=== PATIENT | male | born 1975 | race Caucasian/White ===

== ENCOUNTER 2022-08-29 05:38 | Emergency (ER) | payer OTHER, SELFPAY ==
[2022-08-29 05:42] VITALS: BP 123/90; PULSE 75; RESP 18; TEMP 36.4; O2SAT 100
--- NOTE | 2022-08-29 07:20 | ED.EYEPROB ---
HPI - Eye Problem General Chief complaint: Eye Problems Stated complaint: L eye swelling/redness Time Seen by Provider: 08/29/22 07:03 Source: RN notes reviewed History of Present Illness HPI Narrative: Patient presents emergency department from home for left upper eyelid swelling. Patient states that he began to note the symptoms approximately 2 days ago. He states he noted swelling and erythema of the left upper eyelid he states that with this it is causing mild blurred vision he states that the area of the eyelid is tender to palpation he denies any swelling of the lower eyelid he denies any redness of the eye and denies any drainage states he does not wear contacts or glasses Related Data Home Medications Medication Instructions Recorded Confirmed azelastine 137 mcg (0.1 %) nasal 1 spray intranasal DAILY 10/16/19 10/16/19 spray aerosol fexofenadine 60 mg tablet (Maggy 60 mg PO DAILY 10/16/19 10/16/19 Allergy) Allergies Allergy/AdvReac Type Severity Reaction Status Date / Time No Known Allergies Allergy Verified 08/29/22 07:54 Review of Systems Review of Systems: Gen.: Denies fevers or chills Eyes: See HPI Neuro: Denies headache Skin: Denies rash Endo: Denies DM PMFSH Past Medical History Medical History Desmoid tumor of abdomen (2013) Surgical History Surgical History (System 11/18/21 @ 11:26 by Ricky Mcfadden) H/O nasal septoplasty Family History Family History (System 11/18/21 @ 11:26 by Ricky Mcfadden) Father Hypertension Malignant neoplasm of prostate Family history of coronary artery disease Social History Social History Smoking status: Never smoker Alcohol intake: current Drinks per week: 4 Substance use: never Gender identity (if verbalized by the patient): Male Spiritual care concerns: No Agree to blood products: Yes Exam Narrative: APPEARANCE: No acute distress, nontoxic, resting in bed EYES: EOMI, PERRL no conjunctival erythema, of the right upper and lower eyelid are normal appearance left lower eyelid is normal in appearance of the left upper eyelid is mildly swollen and erythematous, over the medial aspect there is a small area of firmness and appearance of a stye no foreign bodies are seen HEENT: Normocephalic, atraumatic, OMM RESPIRATORY: No respiratory distress MUSCULOSKELETAl: Moves all extremities. NEURO: Awake and alert. Following commands, speech normal, no focal deficits SKIN:: Warm, dry. No rashes lesions or abrasions PSYCHIATRIC: Normal affect/mood, Course Course Emergency Course: Discussed with patient results of workup and diagnosis. Discussed need for follow-up with primary care, proper use of medication, and reasons to return to the emergency department. Patient understands and agrees to current treatment plan Vital Signs Vital signs: Vital Signs Temperature 97.5 F L 08/29/22 05:42 Pulse Rate 75 08/29/22 05:42 Respiratory Rate 18 08/29/22 05:42 Blood Pressure 123/90 08/29/22 05:42 Pulse Oximetry 100 08/29/22 05:42 Oxygen Delivery Room Air 08/29/22 05:42 Temperature 97.5 F L 08/29/22 05:42 Pulse Rate 75 08/29/22 05:42 Respiratory Rate 18 08/29/22 05:42 Blood Pressure 123/90 08/29/22 05:42 Pulse Oximetry 100 08/29/22 05:42 Oxygen Delivery Room Air 08/29/22 05:42 Discharge Plan Discharge Clinical Impression: Hordeolum externum left upper eyelid Patient Disposition: Home, Self-Care Condition: Stable Instructions: Seamus Roe (ED) Additional Instructions: Return for increasing pain vision changes or any other symptoms of concern Prescriptions: New ibuprofen 600 mg tablet 600 mg PO TID PRN (Reason: pain) Qty: 14 0RF erythromycin 5 mg/gram (0.5 %) ointment 1 applic LEFT EYE ONCE Qty: 3.5 0RF No Action fexofenadine [Maggy Allergy] 60 mg Tabl
[2022-08-29] MEDS: IBUPROFEN 600 MG TABLET PO (08:05)
[2022-08-29] MEDS: ERYTHROMYCIN OPHTH OINTMENT 1 GM TUBE 1 APPLIC LEFT EYE (08:05)
[2022-08-29 08:48] VITALS: BP 128/74; PULSE 75; RESP 18; O2SAT 99
== END 2022-08-29 08:10 | disposition home or self-care (01) ==
PROVIDERS: Emergency Provider Emergency Medicine; PCP Nurse Practitioner Family
DX: H00.014 Hordeolum externum left upper eyelid (principal)
CPT/HCPCS: 99283; A9270

== ENCOUNTER 2024-12-05 07:16 | Emergency (ER) | payer OTHER, SELFPAY ==
[2024-12-05 07:19] VITALS: BP 145/96; PULSE 109; RESP 16; TEMP 36.4; O2SAT 99
--- OUTSIDE RECORDS SUMMARY | 2024-12-05 07:19 | XMS_ITS | Referral Summary ---
Author Organization [facility] Address [address] [place] [address] Care Team Providers Care Water Jet Loom Fixer Name Role Phone Star Townsend MD Unavailable [phone] Bijan Benson MD Primary Care Provider [phone] Source Comments [facility],non-owned Affiliates and Associated Physician Practices is amultiple site organization consisting of ambulatory clinics and hospital sitesin [place], [place], [place] and [place]. This disclosure is being madepursuant to the Care Everywhere program and may not contain all information available regarding this patient. Last updated 18.[facility] Allergies No known active allergies Medications Be aware that medications may not be up to date on this document. Always verify current medications with the patient. No known medications Social History Tobacco Use Types Packs/Day Years Used Date Smoking Tobacco: Never Smokeless Tobacco: Never Alcohol Use Standard Drinks/Week Comments Yes 0 (1 standard drink = 0.6 oz pur e alcohol) Sex and Gender Information Value Date Recorded Sex Assigned at Not on file Gender Identity Not on file Sexual Orientation Not on file Last Filed Vital Signs Vital Sign Reading Time Taken Comments Blood Pressure 110/84 10/15/2018 10:34 AM CO TEACHER Pulse 83 10/15/2018 10:34 AM CO TEACHER Temperature 36.7 C (98.1 F) 10/15/2018 10:34 AM CO TEACHER Respiratory Rate 16 10/15/2018 10:34 AM CO TEACHER Oxygen Saturation 98% 10/15/2018 10:34 AM CO TEACHER Inhaled Oxygen Concentration - - Weight 88.5 kg (195 lb) 10/15/2018 10:34 AM CO TEACHER Height 185.4 cm (6' 1 ) 10/15/2018 10:34 AM CO TEACHER Body Mass Index 25.73 10/15/2018 10:34 AM CO TEACHER Plan of Treatment Not on file Care Teams Water Jet Loom Fixer Relationship Specialty Start Date End Date Bijan Benson MD [address] [place] [address] PCP - General Family Medicine 10/02/15 Star Townsend MD Cardiology 09/30/15
--- OUTSIDE RECORDS SUMMARY | 2024-12-05 07:19 | XMS_ITS | Clinical Summary ---
Author Organization [facility] Address [address] [place] [address] Care Team Providers Care Bill Adjuster Name Role Phone Star Townsend MD Unavailable [phone] Bijan Benson MD Primary Care Provider [phone] Source Comments [facility],non-owned Affiliates and Associated Physician Practices is amultiple site organization consisting of ambulatory clinics and hospital sitesin [place], [place], [place] and [place]. This disclosure is being madepursuant to the Care Everywhere program and may not contain all information available regarding this patient. Last updated 18.[facility] Allergies No known active allergies Medications Be aware that medications may not be up to date on this document. Always verify current medications with the patient. 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 MILL OPERATOR Pulse 83 10/15/2018 10:34 AM PULVERIZER MILL OPERATOR Temperature 36.7 C (98.1 F) 10/15/2018 10:34 AM PULVERIZER MILL OPERATOR Respiratory Rate 16 10/15/2018 10:34 AM PULVERIZER MILL OPERATOR Oxygen Saturation 98% 10/15/2018 10:34 AM PULVERIZER MILL OPERATOR Inhaled Oxygen Concentration - - Weight 88.5 kg (195 lb) 10/15/2018 10:34 AM PULVERIZER MILL OPERATOR Height 185.4 cm (6' 1 ) 10/15/2018 10:34 AM PULVERIZER MILL OPERATOR Body Mass Index 25.73 10/15/2018 10:34 AM PULVERIZER MILL OPERATOR Plan of Treatment Health Maintenance Due Date Last Done Comments COLOGUARD (AGES 45-75) - COL ON CA SCREENING 1977 COLON MONITORING 1977 COLONOSCOPY - COLON CA SCREENING 1977 CT COLONOGRAPHY - COLON CA SCREENING 1977 Colorectal Cancer Screening 1977 FIT - COLON CA SCREENING 1977 FLEX SIG - COLON CA SCREENING 1977 LIPID TESTING 1977 HIV SCREENING 1992 HEPATITIS C SCREENING 05/02/1995 DTAP/TDAP/TD VACCINES (1 - Tdap) 1996 HEPATITIS B VACCINE (1 of 3 - 19+ 3-dose series) 1996 SCREENING FOR DIABETES 10/21/2017 COVID-19 VACCINE (1 - 2023-2 5 season) 2024 INFLUENZA VACCINE (#1) 2024 DEPRESSION SCREENING 10/16/2024 ZOSTER VACCINE (1 of 2) 2027 HIB VACCINE Aged Out No longer eligi ble based on patient's age to complete this topic HPV VACCINE Aged Out No longer eligi ble based on patient's age to complete this topic MENINGOCOCCAL (Group B) VACCINE Aged Out No longer eligible based on patient's age to complete this topic MENINGOCOCCAL VACCINE Aged Out No vinicio mandy eligible based on patient's age to complete this topic PNEUMOCOCCAL VACCINE Aged Out No long er eligible based on patient's age to complete this topic Care Teams Bill Adjuster Relationship Specialty Start Date End Date Bijan Benson MD [address] [place] [address] PCP - General Family Medicine 10/02/15 Star Townsend MD Cardiology 09/30/15
--- OUTSIDE RECORDS SUMMARY | 2024-12-05 07:19 | XMS_ITS | Referral Summary ---
Author Organization [facility] Address [address] [facility] [place] [address] Care Team Providers Care Technical Operations Manager Name Role Phone Jose F Christy MD Unavailable [phone] Nitin Martinez MD Primary Care Provider [phone] Allergies No known active allergies Medications multivitamin tablet daily. Active cetirizine (ZyrTEC) 10 mg tablet Take 1 tablet (10 mg total) by mouth daily Active fluticasone propionate (FLONASE) 50 mcg/actuation nasal spray Administer 1 spray into each nostril as needed Active scopolamine 1 mg over 3 days patch [address] 1 patch on the skin every third day as needed (nausea) 4 patch 2 4 Active lisinopriL (PRINIVIL,ZESTR IL) 20 mg tabletIndicatio ns:Hypertension , essential TAKE 1 TABLET DAILY 90 tablet 3 4 Active Active Problems Problem Noted Date Diagnosed Date Dyslipidemia (high LDL; low HDL) 07/16/2024 Assessment & Plan (07/16/2024 1:38 PM CDT): Mildly elevated total and LDL cholesterol; encouraged continued dietary changes, continue current exercise program Polycythemia 09/26/2022 Assessment & Plan (07/16/2024 1:38 PM CDT): Stable, resolving; most recent hemoglobin hematocrit within normal Assessment & Plan (08/22/2023 3:57 PM SEAMLESS TUBE MILL OPERATOR): Will recheck CBC today to evaluate for risk of polycythemia Assessment & Plan (09/26/2022 11:43 AM SEAMLESS TUBE MILL OPERATOR): Resolving, hemoglobin hematocrit trended to normal ranges on most recent labs Will continue to check every 6-12 months to ensure normalizes in normal range Hypertension, essential 07/01/2022 Assessment & Plan (07/16/2024 1:37 PM CDT): Stable, blood pressure mildly elevated at home; today within normal limits Continue lisinopril 20 mg daily Assessment & Plan (08/22/2023 3:57 PM SEAMLESS TUBE MILL OPERATOR): Blood pressure mildly elevated, has been having some dizziness associated with high blood pressure; good sleep; continue lisinopril 20 mg daily Assessment & Plan (03/27/2023 4:56 PM CDT): Stable, well controlled; blood pressure at target; patient reports he has been monitor home and all ambulatory measurements are at target No episodes orthostatics, chest pain or headaches No further episodes of palpitations Continue lisinopril 20 mg daily Assessment & Plan (09/26/2022 11:42 AM SEAMLESS TUBE MILL OPERATOR): Stable, well controlled; patient reports sudden addition to starting medication, has also been working on dietary and activity changes Has lost approximately 10 lb since last visit Encouraged patient continue with lifestyle and activity changes, labs demonstrate normal creatinine and potassium Continue lisinopril 20 mg daily Assessment & Plan (07/01/2022 5:53 PM CDT): Patient has elevated blood pressure, measured in 2020, and again this week x2 Elevated today Patient has family history including father elevated blood pressure Start lisinopril 20 mg daily Gilbert's syndrome 06/24/2022 Assessment & Plan (07/16/2024 1:37 PM CDT): Bilirubin remains stable; no other signs of liver dysfunction inflammation; no current issues for patient Will continue to monitor Assessment & Plan (08/22/2023 3:57 PM SEAMLESS TUBE MILL OPERATOR): Has some abdominal pain; known elevated bilirubin; will recheck CMP to ensure stable bilirubin levels Assessment & Plan (09/26/2022 11:42 AM SEAMLESS TUBE MILL OPERATOR): Stable, most recent CMP demonstrated mild increase of bilirubin, with no evidence of jaundice Pleural fibrosis 11/11/2019 Disorder of penis, unspecified 10/28/2019 Palpitation 10/28/2019 PVCs (premature ventricular contractions) 2019 Pneumothorax on right 10/24/2019 Overview (10/24/2019): First pneumothorax on 10/16/2019 with 7 day hospitalization at OSH with chest tube now with recurrence Assessment & Plan (07/01/2022 5:54 PM CDT): Patient noticed dyspnea on 5 days ago; still present but improving Patient has limited aerobic exercise activities this week Imaging performed in ED demonstrated no recurrence of pneumothorax Assessment & Plan (10/30/2019 10:02 AM SEAMLESS TUBE MILL OPERATOR): - s/p blebectomy and pleural tent on 10/29 - R chest tube to -20 suction, no air leak - remove chest tube today with post- pull CXR - No Beltran, voiding spontaneously - Regular diet - Pain: heber tylenol, oxy PRN, dilaudid PRN - DVT ppx: SQH Assessment & Plan (10/24/2019 1:32 PM SEAMLESS TUBE MILL OPERATOR): POA -Plan to place Thal Quick chest tube in the ED -Will keep chest tube to -20cm suction after placed -Chest CT to be obtained after lung has re-expanded -Discussed possibility of pleurodesis with patient, he is in favor of proceeding in a surgical direction Acute pain 10/24/2019 Assessment & Plan (10/24/2019 1:34 PM SEAMLESS TUBE MILL OPERATOR): -Will start Tylenol and ibuprofen around the clock -Oxycodone PRN, Morphine IV PRN for breakthrough pain -Will order bowel regimen PRN as patient was complaining of diarrhea at home -PRN Zofran Left elbow pain 01/24/2019 Lateral epicondylitis of left elbow 01/24/2019 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 Nasal congestion 07/03/2018 Overview (07/03/2018): Added automatically from request for surgery [id number] Assessment & Plan (09/26/2022 11:42 AM SEAMLESS TUBE MILL OPERATOR): Stable, generally well controlled, recent viral URI worsened symptoms Continue Zyrtec 10 mg daily, Flonase 1 spray each nostril daily Assessment & Plan (10/24/2019 1:32 PM SEAMLESS TUBE MILL OPERATOR): POA -Will continue current sinus medications Deviated nasal septum 07/03/2018 Overview (07/03/2018): Added automatically from request for surgery [id number] Hypertrophy of nasal turbinates 07/03/2018 Overview (07/03/2018): Added automatically from request for surgery [id number] Assessment & Plan (03/27/2023 4:56 PM CDT): Stable, well controlled; had few symptoms several weeks ago after travels; benign resolved Submitted in back to daily activities Continue Zyrtec 10 mg daily, Flonase 1 spray each nostril daily Assessment & Plan (07/01/2022 5:54 PM CDT): Continues to have sinus issues but minimal, nasal surgery in 2018 Encounter for cosmetic surgery 07/03/2018 Overview (07/03/2018): Added automatically from request for surgery [id number] Resolved Problems Problem Noted Date Diagnosed Date Resolved Date Strep pharyngitis 10/28/2019 09/26/2022 Immunizations Immunization Administration Dates Next Due Influenza, Quadrivalent, Rec ombinant, Egg Free, Preservative Free, Intramuscular 08/28/2020 Influenza, Trivalent, IM (MDV) 07/09/2014 Influenza, Trivalent, Preser vative Free, Intramuscular 06/28/2024 Influenza, Unspecified 08/14/2023(Deferr ed: Patient Refused),10/16/2022(Deferred: Patient Refused),10/16/2022(Deferred: Patient Refused),10/16/2021(Deferred: Patient Refused),07/16/2021(Deferred: Patient Refused),07/16/2020(Deferred: Patient Refused),07/16/2013 Tdap 06/28/2024 Social History Tobacco Use Types Packs/Day Years Used Date Smoking Tobacco: Never Smokeless Tobacco: Never Tobacco Cessation:Counseling Given: Not Answered Alcohol Use Standard Drinks/Week Comments Yes 0 (1 standard drink = 0.6 oz pur e alcohol) 1-2/week [facility] [place] Answer Date Recorded In the past 12 months has e [employer], gas, oil, or water [employer] threatened to shut off services in your home? No 08/14/2023 Humiliation, Afraid, Rape, and Kick questionnair e Answer Date Recorded Within the last year, have y ou been afraid of your partner or ex-partner? No 08/14/2023 Within the last year, have y ou been humiliated or emotionally abused in other ways by your partner or ex-partner? No Within the last year, have y ou been kicked, hit, slapped, or otherwise physically hurt by your partner or ex-partner? No 08/14/2023 Within the last year, have y ou been raped or forced to have any kind of sexual activity by your partner or ex-partner? No 08/14/2023 Social Connection and Isolat ion Panel [NHANES] Answer Date Recorded In a typical week, how many times do you talk on the phone with family, friends, or neighbors? More than three times a week 08/14/2023 How often do you get togethe r with friends or relatives? More than three times a week 08/14/2023 How often do you attend chur ch or worship services? Never 08/14/2023 Do you belong to any clubs o r organizations such as anabaptist groups, unions, fraternal or athletic groups, or school groups? No 08/14/2023 How often do you attend meet ings of the clubs or organizations you belong to? Never 08/14/2023 Are you , , di vorced, , never , or living with a partner? 08/14/2023 AUDIT-C Answer Date Recorded Q1: How often do you have a drink containing alc ohol? 2-3 times a week 08/14/2023 Q2: How many drinks containi ng alcohol do you have on a typical day when you are drinking? 3 or 4 08/14/2023 Q3: How often do you have si x or more drinks on one occasion? Monthly 08/14/2023 Overall Financial Resource Strain (CARDIA) Answe r Date Recorded How hard is it for you to pa y for the very basics like food, housing, medical care, and heating? Not hard at all 08/14/2023 PHQ-2 Answer Date Recorded PHQ-2 Total Score (If total score is 3 or more points, staff should administer the PHQ-9) 0 08/14/2023 [facility] - Occupational Stress Questionnaire Answer Date Recorded Do you feel stress - tense, restless, nervous, or anxious, or unable to sleep at night because your mind is troubled all the time - these days? To some extent 08/14/2023 Exercise Vital Sign Answer Date Recorde d On average, how many days pe r week do you engage in moderate to strenuous exercise (like a brisk walk)? 2 days 08/14/2023 On average, how many minutes do you engage in exercise at this level? 40 min 08/14/2023 Hunger Vital Sign Answer Date Recorded Within the past 12 months, y ou worried that your food would run out before you got the money to buy more. Never true 08/14/20 23 Within the past 12 months, t he food you bought just didn't last and you didn't have money to get more. Never true 08/14/2023 PRAPARE - Transportation Answer Date Re corded In the past 12 months, has l ack of transportation kept you from medical appointments or from getting medications? No 07/18 In the past 12 months, has l ack of transportation kept you from meetings, work, or from getting things needed for daily living? No 08/14/2023 Housing Stability Vital Sign Answer John e Recorded In the last 12 months, was t here a time when you were not able to pay the mortgage or rent on time? No 08/14/2023 In the last 12 months, how many places have you lived? 1 08/14/2023 In the last 12 months, was t here a time when you did not have a steady place to sleep or slept in a usp (including now)? No 08/14/2023 Sex and Gender Information Value Date Recorded Sex Assigned at Not on file Legal Sex Male 12:40 AM SEAMLESS TUBE MILL OPERATOR Gender Identity Not on file Sexual Orientation Not on file Last Filed Vital Signs Vital Sign Reading Time Taken Comments Blood Pressure 128/84 06/28/2024 8:36 AM CDT Pulse 92 06/28/2024 8:36 AM CDT Temperature 36.6 C (97.8 F) 06/28/2024 8:36 AM CDT Respiratory Rate 16 06/28/2024 8:36 AM CDT Oxygen Saturation 98% 06/28/2024 8:36 AM CDT Inhaled Oxygen Concentration - - Weight 92.1 kg (203 lb) 06/28/2024 8:36 AM CDT Height 185.4 cm (6' 1 ) 06/28/2024 8:36 AM CDT Body Mass Index 26.78 06/28/2024 8:36 AM CDT Plan of Treatment Not on file Medical Devices Implanted Type Area Human Resources Manager Manufacturing Device Identifier Shelf Expiration Date Model / Serial / Lot [employer] [id number] Alloderm 4x2cm Allograft Regenerative Freeze Dried Thin Matrix - Sn/A - [id number] Implanted:Qty: 1 on 08/16/2018 by Popeye Guadalupe MD at [facility] Other - see comments Nose [employer] 04/14/2020 [id number] / N/A / [id number] [employer] Zfp 8 Pds [id number] Flexible Perforated Cartilage Thk.15mm Rectangle - Sn/A - [id number] Implanted:Qty: 1 on 08/16/2018 by Popeye Guadalupe MD at [facility] Other - see comments Nose [employer] 09/14/2022 ZFP [id number] / N/A / [id number] Procedures Procedure Name Priority Date/Time Associated Diagnosis Comments HEPATITIS C ANTIBODY Routine 06/28/2024 9:30 AM CDT Encounter for hepatitis C screening test for low risk patient STOOL DNA COLOGUARD Routine 04/10/2023 5:00 PM CDT Colon cancer screening PSA SCREEN Routine 03/27/2023 9:06 AM CDT Screening PSA (prostate specific antigen) from Last 3 Months or Most Recently Relevant to Health Maintenance Results * Hepatitis C antibody Blood (06/28/2024 9:30 AM CDT) Pathologist [facility] [place] Hep C Ab Nonreactive Nonreactive Comment: Interpretive Data Nonreactive: Antibodies to HCV not detected. Does NOT exclude the possibility of recent exposure to HCV. Equivocal: Equivocal for HCV antibodies. Supplemental molecular testing will be automatically performed to determine infection status in accordance with current CDC screening recommendations. Reactive: Positive for HCV antibodies. This may represent current or past HCV infection. Supplemental molecular testing will be automatically performed to determine current infection status in accordance with current CDC screening recommendations. Interpretive data was last revised on 2020. Blood 06/28/2024 9:30 AM CDT 06/28/2024 12:51 PM CDT Nitin Martinez MD LAB MICROBIOLOGY - GENERA L ORDERABLES Final Result LEILANI [id number] [address] Department [place] [address] * Stool DNA - Cologuard (04/10/2023 5:00 PM CDT) Pathologist [facility] [place] Stool DNA - Cologuard Negative Negative [employer] (PVT) (CLIA #:[id number]) Comment: NEGATIVE TEST RESULT. A negative Cologuard result indicates a low likelihood that a colorectal cancer (CRC) or advanced adenoma (adenomatous polyps with more advanced pre-malignant features) is present. The chance that a person with a negative Cologuard test has a colorectal cancer is less than 1 in 1500 (negative predictive value >99.9%) or has an advanced adenoma is less than 5.3% (negative predictive value 94.7%). These data are based on a prospective cross-sectional study of 10,000 individuals at average risk for colorectal cancer who were screened with both Cologuard and colonoscopy. (Juno Colón al, N Engl J Med 2014;370(14):9177-7823) The normal value (reference range) for this assay is negative. COLOGUARD RE-SCREENING RECOMMENDATION: Periodic colorectal cancer screening is an important part of preventive healthcare for asymptomatic individuals at average risk for colorectal cancer. Following a negative Cologuard result, the [place] Cancer Society and U.S. Multi-Society Task Force screening guidelines recommend a Cologuard re-screening interval of 3 years. References: [place] [employer] Society Guideline for Colorectal Cancer Screening: https://www.cancer.org/cancer/vvhtk-upgojz-unugew/ejpmvgfti-cxwjqqewo-mgqaeqw/ac s-rec ommendations.html.; Lee CRENSHAW, Bharathi WILDE, Jair JamesK, Colorectal Cancer Screening: Recommendations for Physicians and Patients from the U.S. Multi-Society Task Force on Colorectal Cancer Screening , Am J Gastroenterology 2017; 112:6247-6875. TEST DESCRIPTION: Composite algorithmic analysis of stool DNA-biomarkers with hemoglobin immunoassay. Quantitative values of individual biomarkers are not reportable and are not associated with individual biomarker result reference ranges. Cologuard is intended for colorectal cancer screening of adults of either sex, 45 years or older, who are at average-risk for colorectal cancer (CRC). Cologuard has been approved for use by the U.S. FDA. The performance of Cologuard was established in a cross sectional study of average-risk adults aged 50-84. Cologuard performance in patients ages 45 to 49 years was estimated by sub-group analysis of near-age groups. Colonoscopies performed for a positive result may find as the most clinically significant lesion: colorectal cancer [4.0%], advanced adenoma (including sessile serrated polyps greater than or equal to 1cm diameter) [20%] or non- advanced adenoma [31%]; or no colorectal neoplasia [45%]. These estimates are derived from a prospective cross-sectional screening study of 10,000 individuals at average risk for colorectal cancer who were screened with both Cologuard and colonoscopy. (Juno Gonzales, N Engl J Med 2014;370(14):0436-9290.) Cologuard may produce a false negative or false positive result (no colorectal cancer or precancerous polyp present at colonoscopy follow up). A negative Cologuard test result does not guarantee the absence of CRC or advanced adenoma (pre-cancer). The current Cologuard screening interval is every 3 years. ([place] Cancer Society and U.S. Multi-Society Task Force). Cologuard performance data in a 10,000 patient pivotal study using colonoscopy as the reference method can be accessed at the following location: www.Mevvy/results. Additional description of the Cologuard test process, warnings and precautions can be found at www.cologuard.com. Stool 04/10/2023 5:00 PM CDT 04/11/2023 4:43 PM CDT Nitin Martinez MD LAB BODY FLUIDS AND STOOL S ORDERABLES Final Result Performing Organization Address City/[facility] Co de Phone Number [employer] (CLIA #:[id number]) [place] [address] * PSA screen (03/27/2023 9:06 AM CDT) PSA-Total 2.62 ng/mL LEILANI PARMAR Comment: Interpretive Data AGE SEX REFERENCE INTERVAL 0 minutes-150 years Female None 0 minutes-49 years Male None 50-59 years Male 0-3.90 60-69 years Male 0-5.40 70-79 years Male 0-6.20 80-150 years Male 0-6.20 The Nadja PSA Total assay procedure was used. Results from different manufacturers or methods may not be comparable. Serial testing should be performed using the same method. Current interpretive data last revised 22. Blood 03/27/2023 9:06 AM CDT 03/27/2023 5:37 PM CDT Nitin Martinez MD LAB BLOOD ORDERABLES Ary l Result Performing Organization Address City/[facility]/ZIP Co de Phone Number LEILANI PARMAR [address] [address] Department [place] [address] from Last 3 Months or Most Recently Relevant to Health Maintenance Insurance [employer] Advance Directives For more information, please contact: [phone] * Full Code (Latest Code Status on File) Date Activated Date Inactivated Comments 10/29/2019 6:22 PM 10/30/2019 9:06 PM * Full Code Date Activated Date Inactivated Comments 10/24/2019 9:41 PM 10/25/2019 8:37 PM Care Teams Technical Operations Manager Relationship Specialty Start Date End Date Nitin Martinez MD [address] [place] [address] PCP - General Family Medicine 06/24/22 Jose F Christy MD Surgeon Thoracic Surgery 01/10/20
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
--- OUTSIDE RECORDS SUMMARY | 2024-12-05 07:19 | XMS_ITS | Clinical Summary ---
Author Organization [facility] Address [address] [place] [address] Care Team Providers Care Trucking Supervisor Name Role Phone Jose F Christy MD Unavailable [phone] Nitin Martinez MD Primary Care Provider [phone] Allergies No known active allergies Medications multivitamin [...] normal Assessment & Plan (08/22/2023 3:57 PM SHOTBLAST EQUIPMENT OPERATOR): Will recheck CBC today to evaluate for risk of polycythemia Assessment & Plan (09/26/2022 11:43 AM SHOTBLAST EQUIPMENT OPERATOR): Resolving, hemoglobin hematocrit trended to normal ranges on most recent labs Will continue to check every 6-12 months to ensure normalizes in normal range Hypertension, essential 07/01/2022 Assessment & Plan (07/16/2024 1:37 PM CDT): Stable, blood pressure mildly elevated at home; today within normal limits Continue lisinopril 20 mg daily Assessment & Plan (08/22/2023 3:57 PM SHOTBLAST EQUIPMENT OPERATOR): Blood pressure mildly elevated, has been [...] daily Assessment & Plan (09/26/2022 11:42 AM SHOTBLAST EQUIPMENT OPERATOR): Stable, well controlled; patient reports sudden [...] monitor Assessment & Plan (08/22/2023 3:57 PM SHOTBLAST EQUIPMENT OPERATOR): Has some abdominal pain; known elevated bilirubin; will recheck CMP to ensure stable bilirubin levels Assessment & Plan (09/26/2022 11:42 AM SHOTBLAST EQUIPMENT OPERATOR): Stable, most recent CMP demonstrated mild [...] pneumothorax Assessment & Plan (10/30/2019 10:02 AM SHOTBLAST EQUIPMENT OPERATOR): - s/p blebectomy and pleural tent on 10/29 - R chest tube to -20 suction, no air leak - remove chest tube today with post- pull CXR - No Beltran, voiding spontaneously - Regular diet - Pain: heber tylenol, oxy PRN, dilaudid PRN - DVT ppx: SQH Assessment & Plan (10/24/2019 1:32 PM SHOTBLAST EQUIPMENT OPERATOR): POA -Plan to place Thal Quick chest tube in the ED -Will keep chest tube to -20cm suction after placed -Chest CT to be obtained after lung has re-expanded -Discussed possibility of pleurodesis with patient, he is in favor of proceeding in a surgical direction Acute pain 10/24/2019 Assessment & Plan (10/24/2019 1:34 PM SHOTBLAST EQUIPMENT OPERATOR): -Will start Tylenol and ibuprofen around the clock -Oxycodone PRN, Morphine IV PRN for breakthrough pain -Will order bowel regimen PRN as patient was complaining of diarrhea at home -PRN Zofran Left elbow pain 01/24/2019 Lateral epicondylitis of left elbow 01/24/2019 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 Nasal congestion 07/03/2018 Overview (07/03/2018): Added automatically from request for surgery [id number] Assessment & Plan (09/26/2022 11:42 AM SHOTBLAST EQUIPMENT OPERATOR): Stable, generally well controlled, recent viral URI worsened symptoms Continue Zyrtec 10 mg daily, Flonase 1 spray each nostril daily Assessment & Plan (10/24/2019 1:32 PM SHOTBLAST EQUIPMENT OPERATOR): POA -Will continue current sinus medications Deviated nasal septum 07/03/2018 Overview (07/03/2018): Added automatically from request for surgery [id number] Hypertrophy of nasal turbinates 07/03/2018 Overview (07/03/2018): Added automatically from request for surgery [id number] Assessment & Plan (03/27/2023 4:56 PM CDT): [...] (07/03/2018): Added automatically from request for surgery [id number] Resolved Problems Problem Noted Date Diagnosed Date Resolved Date Strep pharyngitis 10/28/2019 09/26/2022 Immunizations Immunization Administration Dates Next Due Influenza, Quadrivalent, Rec ombinant, Egg Free, Preservative Free, Intramuscular 08/28/2020 Influenza, Trivalent, IM (MDV) 07/09/2014 Influenza, Trivalent, Preser vative Free, Intramuscular 06/28/2024 Influenza, Unspecified 08/14/2023(Deferr ed: Patient Refused),10/16/2022(Deferred: Patient Refused),10/16/2022(Deferred: Patient Refused),10/16/2021(Deferred: Patient Refused),07/16/2021(Deferred: Patient Refused),07/16/2020(Deferred: Patient Refused),07/16/2013 Tdap 06/28/2024 Surgical History Surgery Date Site/Laterality Comments COLECTOMY 10/16/2012 - 10/15/2013 removed for desmoid tumor SEPTORHINOPLASTY 08/16/2018 RHINOPLASTY 08/16/2018 LUNG LOBECTOMY 10/16/2018 - 10/15/2019 for spontaneous pneumothorax Medical History Medical History Date Comments Environmental allergies History of placement of chest tube Spontaneous pneumothorax Family History Medical History Relation Name Comments Hypertension Father Prostate cancer Father Family histo ry of malignant neoplasm of prostate - (Added by TW Conv) Relation Name Status Comments Father Social History Tobacco Use Types Packs/Day Years Used Date Smoking Tobacco: Never Smokeless Tobacco: Never Tobacco Cessation:Counseling Given: Not Answered Alcohol Use Standard Drinks/Week Comments Yes 0 (1 standard drink = 0.6 oz pur e alcohol) 1-2/week Ushahidiities Answer Date Recorded In the past 12 months has [employer], gas, oil, or water [employer] threatened to shut off services in your [...] 08/14/2023 How often do you attend chur or druze services? Never 08/14/2023 Do you belong to any clubs o r organizations such as restorationism groups, unions, fraternal or athletic groups, or [...] staff should administer the PHQ-9) 0 08/14/2023 [facility] - Occupational Stress Questionnaire Answer Date Recorded [...] place to sleep or slept in a long term (including now)? No 08/14/2023 Sex and Gender Information Value Date Recorded Sex Assigned at Not on file Legal Sex Male 12:40 AM SHOTBLAST EQUIPMENT OPERATOR Gender Identity Not on file Sexual Orientation Not on file Obstetrics History Last Filed Vital Signs Vital Sign Reading [...] 06/28/2024 8:36 AM CDT Plan of Treatment Health Maintenance Due Date Last Done Comments Regular Well Visit/Exam 18-64 1995 Depression Screening 08/14/2024 08/14/2023, 08/14/2023, 03/27/2023, Additional history exists Prostate Cancer Screening-PSA 03/27/2025 03/27/2023 Colon Cancer Screening-DNA Stool 04/10/2026 04/10/2023 DTaP/Tdap/Td Vaccine (2 - Td or Tdap) 06/28/2034 06/28/2024 Hepatitis B Screening Completed 06/28/2024 Hepatitis C Screening Completed 06/28/2024 Influenza Vaccine Completed 06/28/2024, , 07/09/2014, Additional history exists Pneumococcal vaccine <65 Aged Out No longer eligible based on patient's age to complete this topic Medical Devices Implanted Type Area Application Support Developer Device Identifier Shelf Expiration Date Model / Serial / Lot [employer] [id number] Alloderm 4x2cm Allograft Regenerative Freeze Dried Thin Matrix - Sn/A - [id number] Implanted:Qty: 1 on 08/16/2018 by Popeye Guadalupe MD at [facility] Other - see comments Nose [employer] 04/14/2020 [id number] / N/A / [id number] [employer] Zfp 8 Pds [id number] Flexible Perforated Cartilage Thk.15mm Rectangle - Sn/A - [id number] Implanted:Qty: 1 on 08/16/2018 by Popeye Guadalupe MD at [facility] Other - see comments Nose [employer] Surgery 09/14/2022 ZFP 8 / N/A / [id number] Procedures Procedure Name Priority Date/Time Associated Diagnosis [...] C antibody Blood (06/28/2024 9:30 AM CDT) Hep C Ab Nonreactive Nonreactive Comment: Interpretive [...] 9:30 AM CDT 06/28/2024 12:51 PM CDT us Nitin Martinez MD LAB MICROBIOLOGY - GENERA L ORDERABLES Final Result [facility] [address] [facility] Department [place] [address] * Stool DNA - Cologuard (04/10/2023 5:00 PM CDT) Stool DNA - Cologuard Negative Negative Kabam (CLIA #:[id number]) Comment: NEGATIVE TEST RESULT. A negative Cologuard [...] (Juno Colón al, N Engl J Med 2014;370(14):7217-4511) The normal value (reference range) for this assay is negative. COLOGUARD RE-SCREENING RECOMMENDATION: Periodic colorectal cancer screening is an important part of preventive healthcare for asymptomatic individuals at average risk for colorectal cancer. Following a negative Cologuard result, the [place] Cancer Society and U.S. Multi-Society Task Force screening guidelines recommend a Cologuard re-screening interval of 3 years. References: [place] Cancer Society Guideline for Colorectal Cancer Screening: https://www.cancer.org/cancer/bhxjg-qtgslu-wttglu/ocrzhqlcq-iccodlmql-rbnoubb/ac s-rec ommendations.html.; Lee CRENSHAW, Bharathi CR, Jair HERNANDEZ, Colorectal Cancer Screening: Recommendations for Physicians and Patients from the U.S. Multi-Society Task Force on Colorectal Cancer Screening , Am J Gastroenterology 2017; 112:9468-7767. TEST DESCRIPTION: Composite algorithmic analysis of stool [...] screened with both Cologuard and colonoscopy. (Juno Vasquez et al, N Engl J Med 2014;370(14):3823-0686.) Cologuard may produce a false negative or false positive result (no colorectal cancer or precancerous polyp present at colonoscopy follow up). A negative Cologuard test result does not guarantee the absence of CRC or advanced adenoma (pre-cancer). The current Cologuard screening interval is every 3 years. ([place] Cancer Society and U.S. Multi-Society Task Force). Cologuard performance data in a 10,000 patient pivotal study using colonoscopy as the reference method can be accessed at the following location: www.[employer].com/results. Additional description of the Cologuard test process, warnings and precautions can be found at www.Qian Xiao'errd.com. Stool 04/10/2023 5:00 PM CDT 04/11/2023 4:43 PM CDT Nitin Martinez MD LAB BODY FLUIDS AND STOOL S ORDERABLES Final Result [facility] (CLIA #:[id number]) [address] [place] [address] [place] [address] * PSA screen (03/27/2023 9:06 AM CDT) [...] ORDERABLES Ary l Result Performing Organization Address [facility] Co de Phone Number [facility] [address] [address] Department of Laboratories [place] [phone] from Last 3 Months or Most Recently Relevant to Health Maintenance Insurance [employer] Advance Directives For more information, please contact: [phone] * Full Code (Latest Code Status on File) Date Activated Date Inactivated Comments 10/29/2019 6:22 PM 10/30/2019 9:06 PM * Full Code Date Activated Date Inactivated Comments 10/24/2019 9:41 PM 10/25/2019 8:37 PM Care Teams Trucking Supervisor Relationship Specialty Start Date End Date Nitin Martinez MD [address] [place] [address] PCP - General Family Medicine 06/24/22 Jose F Christy MD Surgeon Thoracic Surgery 01/10/20
--- OUTSIDE RECORDS SUMMARY | 2024-12-05 07:19 | XMS_ITS | Patient Health Summary ---
Author Organization [facility] Address [address] [place] [address] Care Team Providers Care Marine Engine Machinist Name Role Phone Star Townsend MD Unavailable [phone] Bijan Benson MD Primary Care Provider [phone] Note from [facility],non-owned Affiliates and Associated Physician Practices is amultiple site organization consisting of ambulatory clinics and hospital sitesin [place], [place], [place]. This disclosure is being madepursuant to the Care Everywhere program and may not contain all information available regarding this patient. Last updated 18.[facility] [employer] Allergies No known active allergies Medications Be [...] Comments Blood Pressure 110/84 10/15/2018 10:34 AM DEVELOPMENT EDUCATOR Pulse 83 10/15/2018 10:34 AM DEVELOPMENT EDUCATOR Temperature 36.7 C (98.1 F) 10/15/2018 10:34 AM DEVELOPMENT EDUCATOR Respiratory Rate 16 10/15/2018 10:34 AM DEVELOPMENT EDUCATOR Oxygen Saturation 98% 10/15/2018 10:34 AM DEVELOPMENT EDUCATOR Inhaled Oxygen Concentration - - Weight 88.5 kg (195 lb) 10/15/2018 10:34 AM DEVELOPMENT EDUCATOR Height 185.4 cm (6' 1 ) 10/15/2018 10:34 AM DEVELOPMENT EDUCATOR Body Mass Index 25.73 10/15/2018 10:34 AM DEVELOPMENT EDUCATOR Procedures * STREP A SCREEN - POINT OF CARE (AMB) STL(Performed 10/15/2018) Performed for Acute pharyngitis, unspecified etiology * INFLUENZA A+B - POINT OF CARE (AMB)(Performed 10/21/2017) Performed for Influenza * STRESS TEST TREADMILL (NO IMAGING)(Performed 10/22/2015) Performed for Chest discomfort Results * STREP A SCREEN - POINT OF CARE (AMB) STL (10/15/2018) Strep A Rapid POCT Negative Negative Strep A Internal Control Present Lot # [id number] Expiration Date Throat ENTIRE THROAT (SURFACE REGION OF NECK) / Unknown 10/15/2018 Josafat Rosado APRN-[facility] - POINT OF CARE ORDERABLES * (ABNORMAL) INFLUENZA A+B - POINT OF CARE (AMB) (10/21/2017) Influenza A Antigen Rapid Negative Negative Influenza B Antigen Rapid Positive(A) Negative Influenza Internal Control present NEGATIVE - POSITIVE Influenza Lot Number [id number] Influenza Expiration Date 8,242,019 Other NASOPHARYNGEAL SWAB / Unknown 10/21/2017 Josafat Rosado APRN-[facility] - POINT OF CARE ORDERABLES * STRESS TEST TREADMILL (NO IMAGING) (10/22/2015 5:10 PM DEVELOPMENT EDUCATOR) Narrative [facility] - 10/22/2015 5:10 PM DEVELOPMENT EDUCATOR Kaykay Cee RN 10/22/2015 5:10 PM TREADMILL EXERCISE STRESS TEST PATIENT NAME: Kenton Moody : 1975 DATE OF SERVICE: October 22, 2015 REFERRING PHYSICIAN: Dr. Bijan Benson [facility]/ ORDERING PHYSICIAN: Dr. Ashli Townsend TESTING PHYSICIAN: Dr. Ash Freire INDICATION: Kenton Moody is a 40 y.o. year old male here today for stress testing due to Chest pain and palpitations. Currently the patient denies chest pain, shortness of breath, dizziness and palpitations. The patient has no coronary history. Cardiac risk factors include a positive family history. MEDICATION: Patient is on no medications. RESTING EKG: Sinus rhythm, PVC's Heart rate is 78 beats per minute. ME 0.16 QRS 0.07 QT 0.36 PROCEDURE: The patient exercised for 14 minutes and 23 seconds on a standard Daivd protocol, achieving a maximum workload of 17.5 MET's. The patient achieved a peak heart rate of 184 beats per minute, which was 101% of the predicted maximum heart rate for age. The test was terminated due to fatigue. The patient had no chest discomfort with exercise. The initial blood pressure of 100/60 mmHg increased to 154/74 mmHg. EKG ANALYSIS: The stress EKG demonstrated no ST or T wave changes of ischemia. PVC's decreased with exercise. CONCLUSIONS: 1. Normal maximal exercise EKG stress test without evidence of ischemia. No chest pain. 2. Functional capacity above expected. The patient exercised for 14 minutes and 23 seconds. Functional capacity for age and gender is 12 minutes and [address] Freire reviewed the test and the results were discussed with the patient. Star Townsend MD CARDIAC SERVICE S ORDERABLES Performing Organization Address City/State/[facility] Co de Phone Number [facility] Care Teams Marine Engine Machinist Relationship Specialty Start Date End Date Bijan Benson MD [address] [place] [address] PCP - General Family Medicine 10/02/15 Star Townsend MD Cardiology 09/30/15
--- NOTE | 2024-12-05 07:36 | ED.GENADULT ---
HPI - General Adult General Chief complaint: Animal Bite Stated complaint: laceration, dog bite Time Seen by Provider: 12/05/24 07:22 History of Present Illness HPI narrative: Patient is a 49-year-old male who presents to the ER after being bit by his dog. He was giving it a bone when it 2nd from his hand and lacerated the 4th digit. The dog had been given sedating medications the day before reports a veterinary treatment and had its shots updated. Patient believes the dog was still feeling the effects of those medications when it bit him. No numbness or tingling to the finger. Range of motion preserved. Tetanus shot up-to-date. Related Data Home Medications ?Medication ?Instructions ?Recorded ?Confirmed ?Last Taken ?Type azelastine 137 mcg (0.1 %) nasal 1 spray intranasal DAILY 10/16/19 10/16/19 10/15/19 18:00 History spray fexofenadine 60 mg tablet (Maggy 60 mg PO DAILY 10/16/19 10/16/19 Unknown History Allergy) Allergies Allergy/AdvReac Type Severity Reaction Status Date / Time No Known Allergies Allergy Verified 12/05/24 07:17 Review of Systems Constitutional: Constitutional: Reports no additional constitutional complaints Musculoskeletal: Musculoskeletal: Reports no additional musculoskeletal complaints Integumentary/Breasts: Skin/Breast: Reports system reviewed and no additional complaints, except as docu Neurologic: Reports system reviewed and no additional complaints, except as documented PMFSH Past Medical History Medical History Desmoid tumor of abdomen (2013) Surgical History Surgical History (System 11/18/21 @ 11:26 by Ricky Mcfadden) H/O nasal septoplasty Family History Family History (System 11/18/21 @ 11:26 by Ricky Mcfadden) Father Hypertension Malignant neoplasm of prostate Family history of coronary artery disease Social History Social History Smoking status: Never smoker Alcohol intake: current Drinks per week: 4 Substance use: never Gender identity (if verbalized by the patient): Male Spiritual care concerns: No Agree to blood products: Yes Exam Narrative: GENERAL: Well-appearing, well-nourished, and in no acute distress. HEAD: Normocephalic, atraumatic. ENT: Mucous membranes moist. EXTREMITIES: Normal range of motion. No edema. Right 4th digit neurovascular intact. SKIN: Warm, dry, no rash. Right 4th digit with a puncture wound to the proximal phalanx area medially and 3 cm laceration from the PIP to the proximal phalanx laterally. Wound fully explored in a bloodless field and no tendon or bone is identified. NEURO: Sharp and soft touch intact in the right 4th digit. Alert and oriented x3. PSYCH: Normal mood and affect. Course Course Emergency Course: Patient resting comfortably. Wound repaired. Irrigated extensively with soap and water and with direct pressure. She her proximal portion laceration of list left open in case infection develop so it can drain. Patient will be placed on prophylactic antibiotics. Vital Signs Vital signs: Vital Signs Temperature 97.6 F 12/05/24 07:19 Pulse Rate 109 H 12/05/24 07:19 Respiratory Rate 16 12/05/24 07:19 Blood Pressure 145/96 H 12/05/24 07:19 Pulse Oximetry 99 12/05/24 07:19 Temperature 97.6 F 12/05/24 07:19 Pulse Rate 109 H 12/05/24 07:19 Respiratory Rate 16 12/05/24 07:19 Blood Pressure 145/96 H 12/05/24 07:19 Pulse Oximetry 99 12/05/24 07:19 Procedures Laceration Laceration 1: Date: 12/05/24 Time: 08:51 Site: hand (right 3rd digit) Size (cm): 3 Description: linear and clean Depth: simple, single layer Local Anesthetic: lidocaine 1% and with epi Amount of anesthesia used (mL): 1.5 Pre-repair: wound explored, irrigated extensively and deep structures intact ====== Skin Level ====== Skin layer closed with: nylon Size (cm): 5-0 Number of sutures: 5 Technique: simple, interrupted ====== Subcutaneous Layer ====== ====== Muscle Layer ====== ====== Tendon Layer ====== Medical Decision Making Vital Signs Vital Signs: Vital Signs Temperature 97.6 F 12/05/24 07:19 Pulse Rate 109 H 12/05/24 07:19 Respiratory Rate 16 12/05/24 07:19 Blood Pressure 145/96 H 12/05/24 07:19 Pulse Oximetry 99 12/05/24 07:19 Temperature 97.6 F 12/05/24 07:19 Pulse Rate 109 H 12/05/24 07:19 Respiratory Rate 16 12/05/24 07:19 Blood Pressure 145/96 H 12/05/24 07:19 Pulse Oximetry 99 12/05/24 07:19 Discharge Plan Discharge Clinical Impression: Animal bite of finger, Laceration Patient Disposition: Still a Patient Condition: Stable Instructions: Animal Bite (ED), Care For Your Stitches (ED) Additional Instructions: You will need your sutures removed in 14 days. Monitor your wound for infection. Take Augmentin to help prevent infection. Return the ER if you have additional concerns. Patient Language: Arabic Prescriptions: New amoxicillin-pot clavulanate 875-125 mg tablet 1 tablet PO Q12H Qty: 10 0RF No Action fexofenadine [Maggy Allergy] 60 mg Tablet 60 mg PO DAILY azelastine 137 mcg (0.1 %) aerosol,spray 1 spray INTRANASAL DAILY Rx Instructions: 1 SPRAY EACH NOSTRIL ibuprofen 600 mg tablet 600 mg PO TID PRN (Reason: pain) Qty: 14 0RF erythromycin 5 mg/gram (0.5 %) ointment 1 applic LEFT EYE ONCE Qty: 3.5 0RF Follow-up/Referrals: Brooke Leon APRN [Primary Care Provider] - 2 Weeks
--- OUTSIDE RECORDS SUMMARY | 2024-12-05 08:18 | XMS_ITS | Patient Health Summary ---
Author Organization [facility] Address [address] [place] [address] Care Team Providers Care Plastic Finisher Name Role Phone Star Townsend MD Unavailable [phone] Bijan Benson MD Primary Care Provider [phone] Note from [facility],non-owned Affiliates and Associated Physician Practices is amultiple site organization consisting of ambulatory clinics and hospital sitesin [place], [place], [place] and [place]. This disclosure is being madepursuant to the Care Everywhere program and may not contain all information available regarding this patient. Last updated 18.[facility] [place] Allergies No known active allergies Medications Be [...] Comments Blood Pressure 110/84 10/15/2018 10:34 AM WATERWORKS OPERATOR Pulse 83 10/15/2018 10:34 AM WATERWORKS OPERATOR Temperature 36.7 C (98.1 F) 10/15/2018 10:34 AM WATERWORKS OPERATOR Respiratory Rate 16 10/15/2018 10:34 AM WATERWORKS OPERATOR Oxygen Saturation 98% 10/15/2018 10:34 AM WATERWORKS OPERATOR Inhaled Oxygen Concentration - - Weight 88.5 kg (195 lb) 10/15/2018 10:34 AM WATERWORKS OPERATOR Height 185.4 cm (6' 1 ) 10/15/2018 10:34 AM WATERWORKS OPERATOR Body Mass Index 25.73 10/15/2018 10:34 AM WATERWORKS OPERATOR Procedures * STREP A SCREEN - POINT [...] Strep A Internal Control Present Lot # [id number] Expiration Date Throat ENTIRE THROAT (SURFACE REGION OF NECK) / Unknown 10/15/2018 Josafat Rosado APRN-[facility] - POINT OF CARE ORDERABLES * (ABNORMAL) INFLUENZA A+B - POINT OF CARE (AMB) (10/21/2017) Influenza A Antigen Rapid Negative Negative Influenza B Antigen Rapid Positive(A) Negative Influenza Internal Control present NEGATIVE - POSITIVE Influenza Lot Number [id number] Influenza Expiration Date 8,242,019 Other NASOPHARYNGEAL SWAB / Unknown 10/21/2017 Josafat Rosado APRN-[facility] - POINT OF CARE ORDERABLES * STRESS TEST TREADMILL (NO IMAGING) (10/22/2015 5:10 PM WATERWORKS OPERATOR) Narrative [facility] - 10/22/2015 5:10 PM WATERWORKS OPERATOR Kaykay Cee RN 10/22/2015 5:10 PM TREADMILL EXERCISE STRESS TEST PATIENT NAME: Kenton Moody : 1975 DATE OF SERVICE: October 22, 2015 REFERRING PHYSICIAN: Dr. Bijan Benson [facility]/ ORDERING PHYSICIAN: Dr. Ashli Townsend TESTING PHYSICIAN: [...] Heart rate is 78 beats per minute. NV 0.16 QRS 0.07 QT 0.36 PROCEDURE: The patient exercised for 14 minutes and 23 seconds on a standard David protocol, achieving a maximum workload of 17.5 [...] CARDIAC SERVICE S ORDERABLES Performing Organization Address City/State/[facility] Co de Phone Number [facility] Care Teams Plastic Finisher Relationship Specialty Start Date End Date Bijan Benson MD [address] [place] [address] PCP - General Family Medicine 10/02/15 Star Townsend MD Cardiology 09/30/15
--- OUTSIDE RECORDS SUMMARY | 2024-12-05 08:18 | XMS_ITS | Clinical Summary ---
Author Organization [facility] [employer] Address [address] [place] [address] Care Team Providers Care Distillation Operator Name Role Phone Star Townsend MD Unavailable [phone] Bijan Benson MD Primary Care Provider [phone] Source Comments [facility],non-owned Affiliates and Associated Physician Practices is amultiple site organization consisting of ambulatory clinics and hospital sitesin [place], [place], [place] and [place]. This disclosure is being madepursuant to the Care Everywhere program and may not contain all information available regarding this patient. Last updated 18.[facility] [employer] Allergies No known active allergies Medications Be [...] Comments Blood Pressure 110/84 10/15/2018 10:34 AM FENCE RIDER Pulse 83 10/15/2018 10:34 AM FENCE RIDER Temperature 36.7 C (98.1 F) 10/15/2018 10:34 AM FENCE RIDER Respiratory Rate 16 10/15/2018 10:34 AM FENCE RIDER Oxygen Saturation 98% 10/15/2018 10:34 AM FENCE RIDER Inhaled Oxygen Concentration - - Weight 88.5 kg (195 lb) 10/15/2018 10:34 AM FENCE RIDER Height 185.4 cm (6' 1 ) 10/15/2018 10:34 AM FENCE RIDER Body Mass Index 25.73 10/15/2018 10:34 AM FENCE RIDER Plan of Treatment Health Maintenance Due Date [...] age to complete this topic Care Teams Distillation Operator Relationship Specialty Start Date End Date Bijan Benson MD [address] [place] [address] PCP - General Family Medicine 10/02/15 Star Townsend MD Cardiology 09/30/15
--- OUTSIDE RECORDS SUMMARY | 2024-12-05 08:18 | XMS_ITS | Clinical Summary ---
Author Organization [facility] Address [address] [place] [address] Care Team Providers Care Cake Icer And Packer Name Role Phone Jose F Christy MD Unavailable Nitin Martinez MD Primary Care Provider [phone] Allergies No known active allergies Medications multivitamin [...] normal Assessment & Plan (08/22/2023 3:57 PM EMT INTERMEDIATE): Will recheck CBC today to evaluate for risk of polycythemia Assessment & Plan (09/26/2022 11:43 AM EMT INTERMEDIATE): Resolving, hemoglobin hematocrit trended to normal ranges on most recent labs Will continue to check every 6-12 months to ensure normalizes in normal range Hypertension, essential 07/01/2022 Assessment & Plan (07/16/2024 1:37 PM CDT): Stable, blood pressure mildly elevated at home; today within normal limits Continue lisinopril 20 mg daily Assessment & Plan (08/22/2023 3:57 PM EMT INTERMEDIATE): Blood pressure mildly elevated, has been having [...] daily Assessment & Plan (09/26/2022 11:42 AM EMT INTERMEDIATE): Stable, well controlled; patient reports sudden addition [...] monitor Assessment & Plan (08/22/2023 3:57 PM EMT INTERMEDIATE): Has some abdominal pain; known elevated bilirubin; will recheck CMP to ensure stable bilirubin levels Assessment & Plan (09/26/2022 11:42 AM EMT INTERMEDIATE): Stable, most recent CMP demonstrated mild increase [...] pneumothorax Assessment & Plan (10/30/2019 10:02 AM EMT INTERMEDIATE): - s/p blebectomy and pleural tent on 10/29 - R chest tube to -20 suction, no air leak - remove chest tube today with post- pull CXR - No Beltran, voiding spontaneously - Regular diet - Pain: heber tylenol, oxy PRN, dilaudid PRN - DVT ppx: SQH Assessment & Plan (10/24/2019 1:32 PM EMT INTERMEDIATE): POA -Plan to place Thal Quick chest tube in the ED -Will keep chest tube to -20cm suction after placed -Chest CT to be obtained after lung has re-expanded -Discussed possibility of pleurodesis with patient, he is in favor of proceeding in a surgical direction Acute pain 10/24/2019 Assessment & Plan (10/24/2019 1:34 PM EMT INTERMEDIATE): -Will start Tylenol and ibuprofen around the clock -Oxycodone PRN, Morphine IV PRN for breakthrough pain -Will order bowel regimen PRN as patient was complaining of diarrhea at home -PRN Zofran Left elbow pain 01/24/2019 Lateral epicondylitis of left elbow 01/24/2019 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 Nasal congestion 07/03/2018 Overview (07/03/2018): Added automatically from request for surgery [id number] Assessment & Plan (09/26/2022 11:42 AM EMT INTERMEDIATE): Stable, generally well controlled, recent viral URI worsened symptoms Continue Zyrtec 10 mg daily, Flonase 1 spray each nostril daily Assessment & Plan (10/24/2019 1:32 PM EMT INTERMEDIATE): POA -Will continue current sinus medications Deviated nasal septum 07/03/2018 Overview (07/03/2018): Added automatically from request for surgery [id number] Hypertrophy of nasal turbinates 07/03/2018 Overview (07/03/2018): Added automatically from request for surgery [id number] Assessment & Plan (03/27/2023 4:56 PM CDT): [...] (07/03/2018): Added automatically from request for surgery [id number] Resolved Problems Problem Noted Date Diagnosed Date [...] = 0.6 oz pur e alcohol) 1-2/week [employer] Answer Date Recorded In the past 12 months has [employer], gas, oil, or water [employer] threatened to shut off services in your [...] How often do you attend chur or anabaptist services? Never 08/14/2023 Do you belong to any clubs o r organizations such as temple groups, unions, fraternal or athletic groups, or [...] staff should administer the PHQ-9) 0 08/14/2023 [facility] - Occupational Stress Questionnaire Answer Date Recorded [...] place to sleep or slept in a mcfp (including now)? No 08/14/2023 Sex and Gender Information Value Date Recorded Sex Assigned at Not on file Legal Sex Male 12:40 AM EMT INTERMEDIATE Gender Identity Not on file Sexual Orientation [...] this topic Medical Devices Implanted Type Area Home Care Attendant Device Identifier Shelf Expiration Date Model / Serial / Lot [employer] [id number] Alloderm 4x2cm Allograft Regenerative Freeze Dried Thin Matrix - Sn/A - [id number] Implanted:Qty: 1 on 08/16/2018 by Popeye Guadalupe MD at [facility] Other - see comments Nose [employer] 04/14/2020 [id number] / N/A / [id number] [employer]icon Endo Surgery Zfp 8 Pds [id number] Flexible Perforated Cartilage Thk.15mm Rectangle - Sn/A - [id number] Implanted:Qty: 1 on 08/16/2018 by Popeye Guadalupe MD at [facility] Other - see comments Nose Ethicon Endo Surgery 09/14/2022 ZFP 8 / N/A / [id number] Procedures Procedure Name Priority Date/Time Associated Diagnosis [...] - GENERA L ORDERABLES Final Result LEILANI [address] [facility] Department [place] [address] * Stool DNA - Cologuard (04/10/2023 5:00 PM CDT) Stool DNA - Cologuard Negative Negative [employer] (CLIA #:[id number]) Comment: NEGATIVE TEST RESULT. A negative Cologuard [...] (Juno Colón al, N Engl J Med 2014;370(14):1948-4493) The normal value (reference range) for this assay is negative. COLOGUARD RE-SCREENING RECOMMENDATION: Periodic colorectal cancer screening is an important part of preventive healthcare for asymptomatic individuals at average risk for colorectal cancer. Following a negative Cologuard result, the [place] Cancer Society and U.S. Multi-Society Task Force screening guidelines recommend a Cologuard re-screening interval of 3 years. References: [place] Cancer Society Guideline for Colorectal Cancer Screening: https://www.cancer.org/cancer/mpauq-osnaqj-bkxjbn/zvitygoej-blwvgkiyw-orqcgmz/ac s-rec ommendations.html.; Lee CRENSHAW, Bharathi CR, Jair HERNANDEZ, Colorectal Cancer Screening: Recommendations for Physicians and Patients from the U.S. Multi-Society Task Force on Colorectal Cancer Screening , Am J Gastroenterology 2017; 112:6309-9827. TEST DESCRIPTION: Composite algorithmic analysis of stool [...] Vasquez et al, N Engl J Med 2014;370(14):5234-2790.) Cologuard may produce a false negative or false positive result (no colorectal cancer or precancerous polyp present at colonoscopy follow up). A negative Cologuard test result does not guarantee the absence of CRC or advanced adenoma (pre-cancer). The current Cologuard screening interval is every 3 years. ([place] Cancer Society and U.S. Multi-Society Task Force). Cologuard performance data in a 10,000 patient pivotal study using colonoscopy as the reference method can be accessed at the following location: www.Go2call.com.com/results. Additional description of the Cologuard test process, warnings and precautions can be found at www.admetricksrd.com. Stool 04/10/2023 5:00 PM CDT 04/11/2023 4:43 PM CDT Nitin Martinez MD LAB BODY FLUIDS AND STOOL S ORDERABLES Final Result [facility] (CLIA #:[id number]) [address] [address] * PSA screen (03/27/2023 9:06 AM CDT) [...] ORDERABLES Ary l Result Performing Organization Address [facility] Co de Phone Number [facility] [address] Department of Laboratories [place] [phone] from Last 3 Months or Most Recently Relevant to Health Maintenance Insurance [employer] [facility] [facility]/PPO Address: [address] [address] [place] [address] [employer] [employer]/PPO Address: [address] [place] [phone] [employer] [facility] [employer]/PPO Address: [address] [place] [id number] Advance Directives For more information, please contact: [phone] * Full Code (Latest Code Status on File) Date Activated Date Inactivated Comments 10/29/2019 6:22 PM 10/30/2019 9:06 PM * Full Code Date Activated Date Inactivated Comments 10/24/2019 9:41 PM 10/25/2019 8:37 PM Care Teams Cake Icer And Packer Relationship Specialty Start Date End Date Nitin Martinez MD [address] [place] [address] PCP - General Family Medicine 06/24/22 Jose F Christy MD Surgeon Thoracic Surgery 01/10/20
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
--- OUTSIDE RECORDS SUMMARY | 2024-12-05 08:18 | XMS_ITS | Referral Summary ---
Author Organization [facility] Address [address] [facility] [place] [address] Care Team Providers Care Automobile Club Information Clerk Name Role Phone Star Townsend MD Unavailable [phone] Bijan Benson MD Primary Care Provider [phone] Source Comments [facility],non-owned Affiliates and Associated Physician Practices is amultiple site organization consisting of ambulatory clinics and hospital sitesin [place], [place], [place] and [place]. This disclosure is being madepursuant to the Care Everywhere program and may not contain all information available regarding this patient. Last updated 18.[facility] [employer] Allergies No known active allergies Medications Be [...] Comments Blood Pressure 110/84 10/15/2018 10:34 AM SAUTE CHEF Pulse 83 10/15/2018 10:34 AM SAUTE CHEF Temperature 36.7 C (98.1 F) 10/15/2018 10:34 AM SAUTE CHEF Respiratory Rate 16 10/15/2018 10:34 AM SAUTE CHEF Oxygen Saturation 98% 10/15/2018 10:34 AM SAUTE CHEF Inhaled Oxygen Concentration - - Weight 88.5 kg (195 lb) 10/15/2018 10:34 AM SAUTE CHEF Height 185.4 cm (6' 1 ) 10/15/2018 10:34 AM SAUTE CHEF Body Mass Index 25.73 10/15/2018 10:34 AM SAUTE CHEF Plan of Treatment Not on file Care Teams Automobile Club Information Clerk Relationship Specialty Start Date End Date Bijan Benson MD [address] [place] [address] PCP - General Family Medicine 10/02/15 Star Townsend MD Cardiology 09/30/15
--- OUTSIDE RECORDS SUMMARY | 2024-12-05 08:18 | XMS_ITS | Referral Summary ---
Author Organization [facility] Address [address] [place] [address] Care Team Providers Care Pumper Hand Name Role Phone Jose F Christy MD Unavailable [phone] Nitin Martinez MD Primary Care Provider [phone] Allergies No known active allergies Medications multivitamin [...] normal Assessment & Plan (08/22/2023 3:57 PM PREASSEMBLER AND INSPECTOR): Will recheck CBC today to evaluate for risk of polycythemia Assessment & Plan (09/26/2022 11:43 AM PREASSEMBLER AND INSPECTOR): Resolving, hemoglobin hematocrit trended to normal ranges on most recent labs Will continue to check every 6-12 months to ensure normalizes in normal range Hypertension, essential 07/01/2022 Assessment & Plan (07/16/2024 1:37 PM CDT): Stable, blood pressure mildly elevated at home; today within normal limits Continue lisinopril 20 mg daily Assessment & Plan (08/22/2023 3:57 PM PREASSEMBLER AND INSPECTOR): Blood pressure mildly elevated, has been having [...] daily Assessment & Plan (09/26/2022 11:42 AM PREASSEMBLER AND INSPECTOR): Stable, well controlled; patient reports sudden addition [...] monitor Assessment & Plan (08/22/2023 3:57 PM PREASSEMBLER AND INSPECTOR): Has some abdominal pain; known elevated bilirubin; will recheck CMP to ensure stable bilirubin levels Assessment & Plan (09/26/2022 11:42 AM PREASSEMBLER AND INSPECTOR): Stable, most recent CMP demonstrated mild increase [...] pneumothorax Assessment & Plan (10/30/2019 10:02 AM PREASSEMBLER AND INSPECTOR): - s/p blebectomy and pleural tent on 10/29 - R chest tube to -20 suction, no air leak - remove chest tube today with post- pull CXR - No Beltran, voiding spontaneously - Regular diet - Pain: heber tylenol, oxy PRN, dilaudid PRN - DVT ppx: SQH Assessment & Plan (10/24/2019 1:32 PM PREASSEMBLER AND INSPECTOR): POA -Plan to place Thal Quick chest tube in the ED -Will keep chest tube to -20cm suction after placed -Chest CT to be obtained after lung has re-expanded -Discussed possibility of pleurodesis with patient, he is in favor of proceeding in a surgical direction Acute pain 10/24/2019 Assessment & Plan (10/24/2019 1:34 PM PREASSEMBLER AND INSPECTOR): -Will start Tylenol and ibuprofen around the clock -Oxycodone PRN, Morphine IV PRN for breakthrough pain -Will order bowel regimen PRN as patient was complaining of diarrhea at home -PRN Zofran Left elbow pain 01/24/2019 Lateral epicondylitis of left elbow 01/24/2019 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 Nasal congestion 07/03/2018 Overview (07/03/2018): Added automatically from request for surgery [id number] Assessment & Plan (09/26/2022 11:42 AM PREASSEMBLER AND INSPECTOR): Stable, generally well controlled, recent viral URI worsened symptoms Continue Zyrtec 10 mg daily, Flonase 1 spray each nostril daily Assessment & Plan (10/24/2019 1:32 PM PREASSEMBLER AND INSPECTOR): POA -Will continue current sinus medications Deviated nasal septum 07/03/2018 Overview (07/03/2018): Added automatically from request for surgery [id number] Hypertrophy of nasal turbinates 07/03/2018 Overview (07/03/2018): Added automatically from request for surgery [id number] Assessment & Plan (03/27/2023 4:56 PM CDT): [...] (07/03/2018): Added automatically from request for surgery [id number] Resolved Problems Problem Noted Date Diagnosed Date [...] = 0.6 oz pur e alcohol) 1-2/week [facility] [employer] Answer Date Recorded In the past 12 months has e [employer], gas, oil, or water [employer] threatened to shut off services in your [...] often do you attend chur ch or denominational services? Never 08/14/2023 Do you belong to any clubs o r organizations such as sikh groups, unions, fraternal or athletic groups, or [...] staff should administer the PHQ-9) 0 08/14/2023 [facility] - Occupational Stress [...] place to sleep or slept in a half-way (including now)? No 08/14/2023 Sex and Gender Information Value Date Recorded Sex Assigned at Not on file Legal Sex Male 12:40 AM PREASSEMBLER AND INSPECTOR Gender Identity Not on file Sexual Orientation [...] on file Medical Devices Implanted Type Area Muffler Mechanic Device Identifier Shelf Expiration Date Model / Serial / Lot [employer] [id number] Alloderm 4x2cm Allograft Regenerative Freeze Dried Thin Matrix - Sn/A - [id number] Implanted:Qty: 1 on 08/16/2018 by Popeye Guadalupe MD at [facility] Other - see comments Nose [employer] 04/14/2020 [id number] / N/A / [id number] [employer]icon Endo Surgery Zfp 8 Pds [id number] Flexible Perforated Cartilage Thk.15mm Rectangle - Sn/A - [id number] Implanted:Qty: 1 on 08/16/2018 by Popeye Guadalupe MD at [facility] Other - see comments Nose Ethicon Endo Surgery 09/14/2022 ZFP 8 / N/A / [id number] Procedures Procedure Name Priority Date/Time Associated Diagnosis [...] antibody Blood (06/28/2024 9:30 AM CDT) Pathologist [facility] Hep C Ab Nonreactive Nonreactive Comment: Interpretive [...] - GENERA L ORDERABLES Final Result LEILANI [address] Department [place] [address] * Stool DNA - Cologuard (04/10/2023 5:00 PM CDT) Pathologist [facility] Stool DNA - Cologuard Negative Negative [employer] (CLIA #:[id number]) Comment: NEGATIVE TEST RESULT. A negative Cologuard [...] (Juno Colón al, N Engl J Med 2014;370(14):0532-8853) The normal value (reference range) for this assay is negative. COLOGUARD RE-SCREENING RECOMMENDATION: Periodic colorectal cancer screening is an important part of preventive healthcare for asymptomatic individuals at average risk for colorectal cancer. Following a negative Cologuard result, the [place] Cancer Society and U.S. Multi-Society Task Force screening guidelines recommend a Cologuard re-screening interval of 3 years. References: [place] Cancer Society Guideline for Colorectal Cancer Screening: https://www.cancer.org/cancer/kwylx-hvfssn-oocsnu/pnybbhzir-psaoxmlon-anpyplw/ac s-rec ommendations.html.; Lee CRENSHAW, Bharathi WILDE, Jair JamesK, Colorectal Cancer Screening: Recommendations for Physicians and Patients from the U.S. Multi-Society Task Force on Colorectal Cancer Screening , Am J Gastroenterology 2017; 112:5782-3897. TEST DESCRIPTION: Composite algorithmic analysis of stool [...] colonoscopy. (Juno Gonzales, N Engl J Med 2014;370(14):5661-8879.) Cologuard may produce a false negative or false positive result (no colorectal cancer or precancerous polyp present at colonoscopy follow up). A negative Cologuard test result does not guarantee the absence of CRC or advanced adenoma (pre-cancer). The current Cologuard screening interval is every 3 years. ([place] Cancer Society and U.S. Multi-Society Task Force). Cologuard performance data in a 10,000 patient pivotal study using colonoscopy as the reference method can be accessed at the following location: www.Te[employer] The People/results. Additional description of the Cologuard test process, warnings and precautions can be found at www.cologuard.com. Stool 04/10/2023 5:00 PM CDT 04/11/2023 4:43 PM CDT Nitin Martinez MD LAB BODY FLUIDS AND STOOL S ORDERABLES Final Result Performing Organization Address City/[facility] Co de Phone Number [employer] (CLIA #:[id number]) [place] [address] [place] [address] * PSA screen (03/27/2023 9:06 AM CDT) [...] ORDERABLES Ary l Result Performing Organization Address City/[facility]/ZIP Co de Phone Number LEILANI PARMAR [address] [address] [place] [address] from Last 3 Months or Most Recently Relevant to Health Maintenance Insurance [employer] EM[employer] EM[employer]YEES [employer]ES Advance Directives For more information, please contact: [phone] * Full Code (Latest Code Status on File) Date Activated Date Inactivated Comments 10/29/2019 6:22 PM 10/30/2019 9:06 PM * Full Code Date Activated Date Inactivated Comments 10/24/2019 9:41 PM 10/25/2019 8:37 PM Care Teams Pumper Hand Relationship Specialty Start Date End Date Nitin Martinez MD [address] [place] [address] PCP - General Family Medicine 06/24/22 Jose F Christy MD Surgeon Thoracic Surgery 01/10/20
== END 2024-12-05 09:14 | disposition still patient (30) ==
PROVIDERS: Emergency Provider Emergency Medicine; PCP Nurse Practitioner Family
DX: S61.252A Open bite of right middle finger without damage to nail, initial encounter (principal); W54.0XXA Bitten by dog, initial encounter
CPT/HCPCS: 12002; 99283